=== PATIENT | male | born 1940 | race Caucasian/White ===

== ENCOUNTER 2020-02-21 01:12 | Observation (INO) | payer MEDICARE, OTHER ==
[~2020-02-21] VITALS: Ht 177.8 cm; Wt 86.2 kg
[~2020-02-21 01:12] MED LIST: ATORVASTATIN CA40 MG PO; BACTRIM D.S. TAB1 EA PO; COREG 12.5MG12.5 MG PO; FLOMAX 0.4 MG0.4 MG PO; IMDUR ER TAB 3030 MG PO; ISORDIL TAB 3030 MG PO; LITE COAT ASPI325 MG PO; NORVASC 5 MG TAB5 MG PO; PANTOPRAZOLE SO40 MG PO; PLAVIX 75 MG TA75 MG PO
[2020-02-21 01:57] LABS: HEMOGLOBIN 15.5 gm/dl (14.0-17.5); RED BLOOD COUNT 4.63 M/UL (4.20-5.50); WHITE BLOOD COUNT 9.4 K/UL (4.5-11.0)
[2020-02-21 02:31] LABS: BUN/CREATININE RATIO 19 (0-10)
[2020-02-21] MEDS ORDERED: BETAMETHASONE D50 G1 TP (04:44)
[2020-02-21] MEDS ORDERED: LEVOTHYROXINE25 MC1 PO (04:45)
[2020-02-21] MEDS ORDERED: AMLODIPINE BES2.5 MG PO (10:00)
[2020-02-22 05:32] LABS: HEMOGLOBIN 14.3 gm/dl (14.0-17.5); RED BLOOD COUNT 4.27 M/UL (4.20-5.50); WHITE BLOOD COUNT 9.5 K/UL (4.5-11.0)
[2020-02-23 05:29] LABS: HEMOGLOBIN 14.1 gm/dl (14.0-17.5); RED BLOOD COUNT 4.28 M/UL (4.20-5.50); WHITE BLOOD COUNT 8.5 K/UL (4.5-11.0)
[2020-02-23] MEDS ORDERED: OMNICEF 300 MG300 MG PO (10:23)
== END 2020-02-23 12:25 | disposition home or self-care (01) ==
LOC: ER1 01:12 → MED SURG 4 02:55 → CDU 02:55 → MED SURG 4 04:30
PROVIDERS: Physician Assistant; ADMIT Internal Medicine
DX: R07.81 Pleurodynia (principal); J18.9 Pneumonia, unspecified organism; R06.02 Shortness of breath; E78.5 Hyperlipidemia, unspecified; I25.10 Atherosclerotic heart disease of native coronary artery without angina pectoris; I12.9 Hypertensive chronic kidney disease with stage 1 through stage 4 chronic kidney disease, or unspecified chronic kidney disease; N18.9 Chronic kidney disease, unspecified; Z79.899 Other long term (current) drug therapy; Z79.82 Long term (current) use of aspirin; Z20.822 Contact with and (suspected) exposure to COVID-19; Z95.1 Presence of aortocoronary bypass graft
CPT/HCPCS: 36415; 71045; 71046; 80048; 80053; 82550; 82553; 83605; 83874; 84484; 85025; 85027; 85379; 93005; 94640; 94664; 94760; 96365; 96366; 96368; 96372; 96376; 99285; G0378; J0456; J0696; J1650; J7030; U0002

== ENCOUNTER → 2020-07-10 | Outpatient (CLI) | payer MEDICARE ==
[~2020-07-10] MED LIST changes: +AMLODIPINE BES2.5 MG PO; +BETAMETHASONE D50 G1 TP; +LEVOTHYROXINE25 MC1 PO; +OMNICEF 300 MG300 MG PO
== END ==
LOC: KOH-I 15:51
DX: M51.16 Intervertebral disc disorders with radiculopathy, lumbar region (principal); M51.17 Intervertebral disc disorders with radiculopathy, lumbosacral region
CPT/HCPCS: 72148

== ENCOUNTER 2021-03-24 10:32 | Emergency (ER) | payer MEDICARE | END 2021-03-24 13:14 | disposition home or self-care (01) | LOC: ER1 10:32 | DX: M25.562 Pain in left knee (principal); E78.5 Hyperlipidemia, unspecified; K21.9 Gastro-esophageal reflux disease without esophagitis; I10 Essential (primary) hypertension; Z87.442 Personal history of urinary calculi; Z95.2 Presence of prosthetic heart valve | CPT/HCPCS: 73564; 99283 ==